=== PATIENT | female | born 1940 | race Caucasian/White ===

== ENCOUNTER 2022-01-07 16:55 | Outpatient (REF) | payer MEDICARE, SELFPAY ==
[2022-01-07 22:21] LABS: Anion Gap 10.9 mmol/L (3-11); BUN 16 mg/dL (7-18); CO2 23.1 mmol/L (21.0-32.0); CREATININE 0.9 mg/dL (0.55-1.02); Calcium 9.2 mg/dL (8.5-10.1); Calculated LDL 175 mg/dL (<100); Chloride 107 mmol/L (98-107); Cholesterol 284 mg/dL (<200); Glucose 99 mg/dL (74-106); HDL Cholesterol 94 mg/dL (40-60); Potassium 4.4 mmol/L (3.5-5.1); Sodium 141 mmol/L (136-145); Triglyceride 77 mg/dL (<150)
== END 2022-01-07 16:56 | disposition home or self-care (01) ==
LOC: NCHCN 16:55
PROVIDERS: PCP Nurse Practitioner Family; Visit Provider Nurse Practitioner Family
DX: R73.03 Prediabetes (principal); I10 Essential (primary) hypertension
CPT/HCPCS: 80048; 80061; 83036

== ENCOUNTER 2022-05-14 16:42 | Outpatient (REF) | payer MEDICARE, SELFPAY ==
[2022-05-14 15:38] LABS: Calculated LDL 71 mg/dL (<100); Cholesterol 176 mg/dL (<200); HDL Cholesterol 90 mg/dL (40-60); Triglyceride 77 mg/dL (<150)
== END 2022-05-14 16:43 | disposition home or self-care (01) ==
LOC: NCHCN 16:42
PROVIDERS: PCP Nurse Practitioner Family; Visit Provider Nurse Practitioner Family
DX: Z00.00 Encounter for general adult medical examination without abnormal findings (principal); E78.5 Hyperlipidemia, unspecified
CPT/HCPCS: 80061

== ENCOUNTER 2023-03-03 15:19 | Outpatient (REF) | payer MEDICARE, SELFPAY ==
[2023-03-03 15:02] LABS: Anion Gap 10.9 mmol/L (3-11); BUN 18 mg/dL (7-18); CO2 24.1 mmol/L (21.0-32.0); CREATININE 0.9 mg/dL (0.55-1.02); Chloride 106 mmol/L (98-107); Estimated GFR 64.63 (mL/min/1.73m2); Glucose 93 mg/dL (74-106); Potassium 4.1 mmol/L (3.5-5.1); Sodium 141 mmol/L (136-145)
== END 2023-03-03 15:20 | disposition home or self-care (01) ==
LOC: NCHCN 15:19
PROVIDERS: PCP Nurse Practitioner Family; Visit Provider Nurse Practitioner Family
DX: I10 Essential (primary) hypertension (principal)
CPT/HCPCS: 80048

== ENCOUNTER 2024-03-01 18:08 | Outpatient (REF) | payer MEDICARE, SELFPAY ==
[2024-03-03 12:15] LABS: HSV 1 DNA Result Negative (Negative); HSV 2 DNA Result Negative (Negative); Varicella Zoster DNA Result Negative ((See Note))
== END 2024-03-01 18:09 | disposition home or self-care (01) ==
LOC: NCHCN 18:08
PROVIDERS: PCP Nurse Practitioner Family; Visit Provider Physician Assistant
DX: L98.8 Other specified disorders of the skin and subcutaneous tissue (principal)
CPT/HCPCS: 87529; 87798

== ENCOUNTER 2024-03-16 19:49 | Outpatient (REF) | payer MEDICARE, SELFPAY ==
[2024-03-16 21:32] LABS: HCT 42.5 % (36.0-46.0); HGB 13.8 g/dL (11.2-15.7); MCH 30.1 pg (27.0-33.0); MCHC 32.5 % (32.0-36.0); MCV 93 fL (80-95); MPV 10.5 fL (8.0-11.0); Platelet Count 460 10^3/uL (130-400); RBC 4.59 10^6/uL (3.93-5.22); RDW 12.9 % (11.7-14.6); RDW-SD 44.1 fL; WBC 7.31 10^3/uL (4.4-10.8)
[2024-03-16 22:07] LABS: BUN 14 mg/dL (7-18); CO2 26.4 mmol/L (21.0-32.0); CREATININE 0.9 mg/dL (0.55-1.02); Calcium 9.1 mg/dL (8.5-10.1); Calculated LDL 145 mg/dL (<100); Cholesterol 248 mg/dL (<200); Estimated GFR 64.23 (mL/min/1.73m2); Glucose 88 mg/dL (74-106); HDL Cholesterol 83 mg/dL (40-60); TSH (W/Ref FT4) 2.35 uIU/mL (0.36-3.74); Triglyceride 100 mg/dL (<150)
[2024-03-16 22:31] LABS: Anion Gap 9.6 mmol/L (3-11); Chloride 103 mmol/L (98-107); Potassium 4.2 mmol/L (3.5-5.1); Sodium 139 mmol/L (136-145)
== END 2024-03-16 19:50 | disposition home or self-care (01) ==
LOC: NCHCN 19:49
PROVIDERS: PCP Nurse Practitioner Family; Visit Provider Nurse Practitioner Family
DX: I10 Essential (primary) hypertension (principal); E78.5 Hyperlipidemia, unspecified; E04.2 Nontoxic multinodular goiter
CPT/HCPCS: 80048; 80061; 85027; 84443

== ENCOUNTER 2024-03-30 23:59 | Outpatient (REF) | payer MEDICARE, SELFPAY ==
[2024-03-30 21:36] LABS: Ferritin 103 ng/mL (8-252)
[2024-03-30 22:21] LABS: Abs Immature Grans 0.03 10^3/uL (0.0-0.06); Absolute Basophil Count 0.11 10^3/uL (0.0-0.2); Absolute Eosinophil Count 0.24 10^3/uL (0.0-0.7); Absolute Lymphocyte Count 2.58 10^3/uL (1.2-3.4); Absolute Monocyte Count 0.86 10^3/uL (0.1-0.8); Absolute Neutrophil Count 4.99 10^3/uL (1.2-6.7); Basophils % 1.2 %; Eosinophils % 2.7 %; HCT 40.5 % (36.0-46.0); HGB 13.3 g/dL (11.2-15.7); Immature Grans % 0.3 %; Lymphocytes % 29.3 %; MCH 30.1 pg (27.0-33.0); MCHC 32.8 % (32.0-36.0); MCV 92 fL (80-95); MPV 11.4 fL (8.0-11.0); Monocytes % 9.8 %; Neutrophils % 56.7 %; RBC 4.42 10^6/uL (3.93-5.22); RDW 13.2 % (11.7-14.6); RDW-SD 44.2 fL; WBC 8.81 10^3/uL (4.4-10.8)
[2024-03-30 22:47] LABS: Diff Comment RBC Morph Reviewed; Platelet Count 485 10^3/uL (130-400); RBC Morphology Normal
== END 2024-03-31 | disposition home or self-care (01) ==
LOC: NCHCN 23:59
PROVIDERS: PCP Nurse Practitioner Family; Visit Provider Nurse Practitioner Family
DX: D75.839 Thrombocytosis, unspecified (principal)
CPT/HCPCS: 82728; 85025

== ENCOUNTER 2025-03-07 15:08 | Outpatient (REF) | payer MEDICARE, SELFPAY ==
[2025-03-07 21:45] LABS: Calculated LDL 77 mg/dL (<100); Cholesterol 182 mg/dL (<200); HDL Cholesterol 93 mg/dL (>or=50); Triglyceride 64 mg/dL (<150)
== END 2025-03-07 15:09 | disposition home or self-care (01) ==
LOC: NCHCN 15:08
PROVIDERS: PCP Nurse Practitioner Family; Visit Provider Nurse Practitioner Family
DX: E78.5 Hyperlipidemia, unspecified (principal)
CPT/HCPCS: 80061